=== PATIENT | female | born 1950 | race Caucasian/White ===

== ENCOUNTER 2016-12-24 00:05 | Inpatient (IN) | payer MEDICARE, MEDICAID ==
[2016-12-24] MEDS ORDERED: Ondansetron HCl/PF 4 MG/2 ML Vial IVP PRN (03:42)
[2016-12-24] MEDS ORDERED: Acetaminophen 650 MG Suppository PR PRN (03:42)
[2016-12-24] MEDS ORDERED: HumaLOG 300 UNITS/3 ML VIAL SC PRN (04:17)
[2016-12-24] MEDS ORDERED: Dextrose 50% Abboject 50 ML SYRINGE SLOW IVP PRN (04:17)
[2016-12-24] MEDS ORDERED: Dextrose 5% in Water 1,000 ML IV PRN (04:17)
[2016-12-24] MEDS ORDERED: Sodium Chloride 0.9% 1,000 ML IV SCH (04:30)
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
[2016-12-24 05:50] VITALS: BMI 24.3
[2016-12-24 06:03] LABS: Sodium 139 mmol/L (135-148)
[2016-12-24 06:05] LABS: Vent NO
[2016-12-24 06:06] LABS: Mode 4LNC; Modified Allen's Test NOT DONE
[2016-12-24] MEDS: Piperacillin/Tazobactam 4.5 GM in Sodium Chloride 0.9% 100 ML IVPB SCH ×3 (06:50→21:26)
--- NOTE | 2016-12-24 08:54 | ULT ---
PRELIMINARY REPORT/[facility]/EMERGENCY AFTER HOURS PROCEDURE: EXAM: US Abdomen Limited, Right Upper Quadrant CLINICAL HISTORY: 66 years old, female; Pain; Other: Abd pain, elevated lfts, sepsis TECHNIQUE: Real-time ultrasound of the right upper quadrant with image documentation. COMPARISON: No relevant prior studies available. FINDINGS: Liver: No mass. No intrahepatic bile duct dilation. Gallbladder: Sludge. No gallstones. Mild gallbladder wall thickening. Trace pericholecystic fluid. P ositive [place] sign. Common bile duct: Unremarkable. Pancreas: Unremarkable. Right kidney: No stones. No solid mass. No hydronephrosis. Trace perinephric fluid. IMPRESSION: Gallbladder sludge with mild wall thickening, trace pericholecystic fluid and positive Farah's sign ; recommend clinical correlation for cholecystitis. Thank you for allowing us to participate in the care of your patient. Dictated and Authenticated by: Stan Castro MD 12/24/2016 2:34 AM Central Time ([place] \T\ [place])\H\ \N\ FINAL REPORT EMERGENCY AFTER HOURS RIGHT UPPER QUADRANT ULTRASOUND: Date: 12/24/16 HISTORY: Abdominal pain, elevated liver function tests, elevated lactate. IMPRESSION: 1. Gallbladder sludge without gallbladder calculus. Gallbladder wall is thickened, measuring 0.48 c m in thickness. There is a trace amount of pericholecystic fluid. Educational Audiologist does note positiv e sonographic Farah's sign. Findings could be related to cholecystitis in the correct clinical scen ario. 2. Common duct is normal in caliber measuring 0.5 cm. 3. Mild fatty infiltration of the liver. 4. Trace amount of perinephric fluid on the right. Findings are in agreement with the preliminary report by Christina. POS: [facility]
[2016-12-24] MEDS ORDERED: Budesonide 0.5 MG/2 ML NEB NEB PRN (09:31)
--- NOTE | 2016-12-24 09:36 | PDOC.PN ---
- Subjective Encounter Start Date: 12/24/16 Encounter Start Time: 09:25 Subjective: f/u after admit for sepsis, hypoglycemia, acute cholecystetitis and A-fib -: with RVR on Cardizem. Tx with Zosyn, IVF's. c/o mild mid-abd pain with -: intermittent nausea. - Objective MAR Reviewed: Yes Vital Signs & Weight: Vital Signs (12 hours) Temp Pulse Resp BP Pulse Ox 12/24/16 08:00 96.6 F L 91 24 H 117/64 93 L 12/24/16 06:05 98.2 F 88 20 117/75 95 12/24/16 06:00 98.2 F 88 20 95 12/24/16 05:05 97.8 F 95 20 115/64 91 L Weight Weight 132 lb 11.2 oz I&O: 12/23/16 12/24/16 12/25/16 06:59 06:59 06:59 Intake Total 75 Output Total 400 Balance -325 Additional Labs: Accuchecks 12/24/16 12/24/16 09:03 06:07 POC Glucose 139 H 152 H Laboratory Tests 12/24/16 12/24/16 12/24/16 05:54 06:07 09:03 Bicarbonate Actual 17.2 L ABG pH 7.35 ABG pCO2 31.8 L ABG pO2 152.4 H ABG O2 Sat Calc/Juan 99.1 Inspired O2 36 POC Glucose 152 H 139 H Radiology Reviewed by me: Yes (Abd sono - GB wall thickening, sludge, no CBD dilation) EKG Reviewed by me: Yes (Tele - Sinus tachycardia with PAC's) Phys Exam - Physical Examination Constitutional: NAD awake, responsive HEENT: PERRLA, oral pharynx no lesions Neck: no JVD, supple Respiratory: no wheezing tachycardic Cardiovascular: RRR +TTP in mid-epigastric region Gastrointestinal: soft, no distention, positive bowel sounds Musculoskeletal: no edema, pulses present Neurological: normal sensation, moves all 4 limbs Psychiatric: A&O x 3 Skin: normal turgor, cap refill <2 seconds Deviation from normal: Freeman with benitez urine Dx/Plan (1) Sepsis Code(s): A41.9 - SEPSIS, UNSPECIFIED ORGANISM Status: Acute Qualifiers: Sepsis type: sepsis due to unspecified organism Qualified Code(s): A41.9 - Sepsis, unspecified organism Comment: Suspected due to #2, continue Zosyn 4.5gm IV q6h, blood and Ucx pending , increase IVF's 100ml/h, repeat lactic acid (2) Acute cholecystitis without calculus Code(s): K81.0 - ACUTE CHOLECYSTITIS Status: Acute Comment: Suspected by clinical findings and kishan gale, consult Gen Surgery for evaluation, contine Zosyn and supportive measures (3) Atrial fibrillation with RVR Code(s): I48.91 - UNSPECIFIED ATRIAL FIBRILLATION Status: Acute Comment: PAF now in sinus tachycardia with PAC's, continue rate control measures, tele (4) Hypoglycemia Code(s): E16.2 - HYPOGLYCEMIA, UNSPECIFIED Status: Acute Comment: Resolved, likely due to #1, serial accuchecks, avoid hypoglycemic agents (5) DM type 2 (diabetes mellitus, type 2) Status: Chronic Comment: Hold hypoglycemic agents due to initial hypoglycemia , resume home regimen once clinically stabilizing (6) Smoker Code(s): F17.200 - NICOTINE DEPENDENCE, UNSPECIFIED, UNCOMPLICATED Status: Chronic Comment: Tobacco cessation, consider Nicotine patch - Plan continue antibiotics, public health social worker, respiratory therapy, DVT proph w/SCDs Continue Zosyn -: Gen Surgery consult regarding acute cholecystitis -: Increase IVF's 100ml/h -: Titrate off Cardizem gtt -: Resume Duonebs, Singulair, O2 supplementation * Labs: CMP, CBC, Lactic acid * AM labs: BMP, CBC
[2016-12-24 10:17] LABS: Lactic Acid - Sepsis 3.1 mmol/L (0.5-2.2)
[2016-12-24 10:21] LABS: ALT (SGPT) 1788 U/L (8-55); Alkaline Phosphatase 83 U/L (40-150); Anion Gap 15 mmol/L (10-20); BUN (Urea Nitrogen) 39 mg/dL (9.8-20.1); Calc. Creatinine Clearance 53 mL/min (70-130); Calcium 6.9 mg/dL (7.8-10.44); Carbon Dioxide 16 mmol/L (23-31); Chloride 109 mmol/L (98-107); Estimated GFR-MDRD 55; Globulin 2.6 g/dL (2.4-3.5); Protein, Total 5.5 g/dL (6.0-8.3)
[2016-12-24 10:30] LABS: AST (SGOT) Greater than 3500 U/L (5-34)
[2016-12-24] MEDS ORDERED: Metoprolol Tartrate 5 MG/5 ML VIAL IVP SCH (10:30)
[2016-12-24] MEDS: Sodium Chloride 0.9% 1,000 ML IV SCH ×2 (10:41→21:25)
[2016-12-24 11:15] LABS: Band 17 % (5-11); Burr Cells MARKED = >16 cells (100X) (0-1/hpf); Hematocrit 40.2 % (36.0-47.0); Mean Platelet Volume 10.7 fL (7.4-10.4); Neutrophil 66 % (42-75); Nucleated RBC 3 % (0); Polychromasia MODERATE = 3-4 cells (100X) (0-2/hpf); Reactive Lymphocytes 1 % (0-10); Red Blood Cell (RBC) Count 4.47 mill/uL (4.20-5.40); Schistocytes SLIGHT = 2-5 cells (100X) (0-1/hpf); White Blood Cell (WBC) Count 16.1 thou/uL (4.8-10.8)
[2016-12-24 11:20] LABS: Acetaminophen Less than 6.0 mcg/mL (10.0-30.0)
[2016-12-24 11:53] LABS: PTT 32.9 SEC (22.9-36.1); Prothrombin Time 42.2 SEC (12.0-14.7)
--- NOTE | 2016-12-24 11:59 | CON ---
DATE OF CONSULTATION: 12/24/2016 REASON FOR CONSULTATION: Atrial fibrillation with rapid ventricular response. HISTORY OF PRESENT ILLNESS: Ms. Eubanks is a very pleasant 66-year-old white gentleman who comes to the hospital for abdominal pain. She states for the last 3 days she has been vomiting everything she eats. She has not really eaten anything because of the continued nausea. She has got generalized abdominal pain, worse on the right upper quadrant and left lower quadrant. She came into the [facility] in [place] for this and was transferred over here for further care. She was found to be in atrial fibrillation and RVR, so Cardiology is being consulted for this. She has a significant history of peripheral vascular disease. Her atrial fibrillation is subsequently rate controlled between 90 and 110 right now. She denies any chest pain, tightness, pressure. She only feels palpitations, but her biggest complaint is abdominal pain. PAST MEDICAL HISTORY: 1. Peripheral vascular disease with an occluded left common iliac artery and abdominal aortic aneurysm, not in the range of needing surgery. 2. Hypertension. 3. COPD. 4. Gastroesophageal reflux disease. 5. CTA in the past. 6. in 10/2016. 7. Hiatal hernia. 8. Diverticulosis. 9. Coronary artery with severe left circumflex disease that was not amenable to endovascular intervention. 10. History of diastolic dysfunction and systolic dysfunction with EF at 45%. 11. Chronic kidney disease stage 3. 12. Type 2 diabetes. PAST SURGICAL HISTORY: 1. Endoscopy and colonoscopy. 2. Right hip replacement. 3. Total hysterectomy. 4. Hernia repair. 5. Cardiac catheterization as above. SOCIAL HISTORY: Denies alcohol or drugs. She continues to smoke about a pack and a half a day. FAMILY HISTORY: Brother with a myocardial infarction. Son, [id number] and grandchild all have hepatitis C. OUTPATIENT MEDICATIONS: 1. Senna. 2. Protonix. 3. Fish oil. 4. Multivitamin. 5. Singulair. 6. Lisinopril 10 mg a day. 7. DuoNeb. 8. Neurontin. 9. Ferrous sulfate. 10. Plavix 75 mg daily. 11. Coreg 3.125 mg b.i.d. 12. Pulmicort. 13. Atorvastatin 40 mg at bedtime. ALLERGIES: 1. AMIODARONE. 2. ASPIRIN. 3. IBUPROFEN. 4. METHADONE. 5. DARVON. REVIEW OF SYSTEMS: A 12 point review of systems was done, it is all negative unless stated in the history of present illness. PHYSICAL EXAMINATION: VITAL SIGNS: Temperature maximum 98.2, pulse between 88 and 105, respiratory rate 24, satting 93% on 2.5 liters, blood pressure 117/64. GENERAL: Awake, alert, oriented x3 in mild distress. HEENT: Normocephalic, atraumatic. NECK: Supple. LUNGS: Reduced breath sounds bilaterally. CARDIOVASCULAR: S1, S2, no S3 or S4. Irregularly irregular. Heart rate in the upper 90s. ABDOMEN: Tender to palpation. No rebound or guarding, but it is exquisitely tender throughout. EXTREMITIES: No edema. SKIN: Warm and dry. LABORATORY WORK: Laboratory work was reviewed from [facility] and it showed a pH of 7.2, pCO2 29, HCO2 of 12, pO2 was 112. Glucose was 13, BUN 48, creatinine 1.6, GFR 50, calcium 8.9, albumin 4, total bilirubin of 4.3, alkaline phosphatase 93, total protein 7.5, ALT of 468, AST of 589, globulin of 3.5. Lipase of 21. CK of 187. Ammonia 34. Lactate of 10.3, troponin of 0.08. No alcohol, no acetaminophen or salicylates, myoglobin was 690. White count 15, hemoglobin 13, hematocrit 45 granulocytes 84%. UA showed trace ketones, moderate blood, trace protein, 15-30 hyaline casts. Urine drug screen was negative. INR was 4.5. PT was 48.5. BNP was 475, CK-MB was 17. EKG reviewed from the outside facility, atrial fibrillation with RVR. Currently, telemetry shows atrial fibrillation, leniently rate controlled. CT scan of the abdomen without contrast shows hyperdensity within the gallbladder, may reflect gallbladder sludge, there is nodularity within the left lower lobe that can be seen with bronchiolitis or infection with inflammatory etiology. Bibasilar emphysema, a large hiatal hernia, bilateral adrenal nodules, hyperdensities in the lateral margin of the left kidney, nonspecific. Right nephrolithiasis, thoracic and infrarenal abdominal aortic aneurysm, colonic diverticulosis and an inguinal hernia containing a portion of the right bladder dome. ASSESSMENT AND PLAN: 1. Atrial fibrillation, rapid ventricular response: Rate controlled for now. Her INR is so high that she is probably naturally anticoagulated right now. It would be contraindicated to give any Plavix or any anticoagulation at this time. We will hold off on any cardioversion at this time, probably she needs her heart rate so we will do some permissive tachycardia at this time. We will start low dose beta margarette in the form of metoprolol 5 mg IV q.6 h. 2. Non-ST elevation myocardial infarction: Demand ischemia, most likely. 3. Abnormal liver function tests: Some sludge in gallbladder. Will probably need GI evaluation. General surgeon already being called. My biggest concern is ischemic bowel or an embolic phenomenon at this time given her history of afib new onset and abdominal aortic aneurysm and vasculopath. Thank you for letting us participate in the care of your patient. We will follow. WAQAR
[2016-12-24] MEDS ORDERED: Sodium Bicarb 50 MEQ/50 ML Abboject 8.4% SYRINGE IVP SCH ×2 (12:00→14:00)
[2016-12-24 12:05] LABS: ALT (SGPT) 1764 U/L (8-55); AST (SGOT) 3453 U/L (5-34); Alkaline Phosphatase 88 U/L (40-150); Bilirubin, Direct 2.2 mg/dL (0.1-0.3); Bilirubin, Total 3.2 mg/dL (0.2-1.2); Protein, Total 5.5 g/dL (6.0-8.3)
--- NOTE | 2016-12-24 13:02 | ULT ---
HEPATIC SONOGRAM WITH DUPLEX EVALUATION. HISTORY: Abnormal liver function tests. FINDINGS: No gallbladder abnormalities are apparent. The liver is unremarkable. The common duct was not eval uated. Good color and spectral Doppler flow are present within the hepatic and splenic arteries. Portal ve nous flow is towards the liver. Hepatic venous flow is towards the IVC. IMPRESSION: No sonographic evidence of portal venous hypertension. POS: [facility]
--- NOTE | 2016-12-24 13:54 | CT ---
EXAM: CT ANGIOGRAM OF THE ABDOMEN AND CT ANGIOGRAM OF THE PELVIS: HISTORY: Evaluate for ischemic bowel. Evaluate for colitis and hepatitis. COMPARISON: None. CORRELATION: Abdomen and pelvic CT without contrast 06/10/16. TECHNIQUE: CT angiogram of the abdomen and pelvis performed in the axial plane. Sagittal and coronal 3-dimensi onal reformatted images are submitted for interpretation. FINDINGS: Small bilateral pleural effusions with adjacent consolidation due to atelectasis or pneumonia. Rede monstration of a moderate hiatal hernia. Limited evaluation of the solid organs due to arterial phase enhancement. No obvious abnormal enhan cing masses or vascular lesions throughout the solid organs. There is reflux of contrast into the intrahepatic veins due to right heart failure. There is atrophy of the left kidney with marked mid pole and upper pole cortical thinning. There ar e hypodensities in the left renal cortex which are statistically favored to be cysts. No obstructiv e uropathy. Symmetric attenuation of the psoas muscles. Minimal mesenteric fat stranding. There is fluid in both paracolic butters, right greater than left . No mass, lymphadenopathy, or free air. Limited evaluation of the alimentary canal due to the lack of oral contrast. Hiatal hernia is demon strated. Multiple normal-caliber small bowel loops. Ileocecal junction is normal. There is mild m ucosal prominence throughout the majority of the colon which is felt to be due to inadequate distent ion. Definite pericolonic fat stranding is not appreciated. There is diverticulosis of the sigmoid colon, without evidence of diverticulitis. PELVIC CT: The urinary bladder is decompressed by Freeman catheterization. Surgically absent uterus. No pelvic mass, lymphadenopathy, or free air. There is free fluid in the pelvis with an attenuation coefficie nt of 11 Hounsfield units suggesting simple fluid. There are no osteoblastic or osteolytic lesions. CT ANGIOGRAM: There is aneurysmal dilatation of the descending thoracic aorta with eccentric thrombus. There is a ssociated moderate narrowing. The descending thoracic aorta measures 3.5 x 3.5 cm. There is extens tiana atherosclerotic disease with high-grade stenosis at the origin of the celiac artery. There is a therosclerotic disease with moderate stenosis at the origin of the superior mesenteric artery. The proximal superior mesenteric artery has appropriate enhancement. The left and right renal arteries do have atherosclerosis. There is moderate short-segment stenosis at the origin of the right renal artery. Atherosclerosis with mild narrowing at the origin of the left vertebral artery is noted. S olitary left and right vertebral arteries are identified. There is aneurysmal dilatation of the int rarenal abdominal aorta, measuring 3.5 cm anterior posterior x 3.5 cm craniocaudal. There is marked eccentric thrombus with resultant moderate/severe narrowing of the lumen. The inferior mesenteric artery is unremarkable. The distal abdominal aorta has an overall normal caliber. There is extensi ve atherosclerosis with mild/moderate stenosis. Aortic bifurcation demonstrates mild narrowing due to eccentric thrombus. The proximal right common iliac artery has appropriate enhancement and lumin al diameter. At the bifurcation of the right common iliac artery, there appears to be focal aneurys mal dilatation measuring 1.3 cm. There is long-segment thrombosis and occlusion of the entire left common iliac artery. The left internal and external iliac arteries do not have any significant cont rast enhancement. The right internal and external iliac arteries demonstrate atherosclerotic diseas e. Contrast enhancement is still present. IMPRESSION: 1. Nonspecific thickening of the colonic mucosa. Distribution is not typical with an ischemic proc ess. However, given the degree of atherosclerotic disease, a component of ischemic change can not b e excluded. Additionally, infectious or inflammatory colitis should be considered. There is evidenc e of diverticulosis, without evidence of diverticulitis. Evaluation of the colon is limited on this examination due to lack of oral contrast/rectal contrast administration. 2. Atherosclerosis of the aorta as detailed above. There is significant narrowing and aneurysmal d ilatation, as detailed above. POS: [facility]
[2016-12-24 14:15] LABS: Iron 18 ug/dL (50-170)
--- NOTE | 2016-12-24 14:16 | CON ---
DATE OF CONSULTATION: 12/24/2016 GI INPATIENT CONSULTATION NOTE REQUESTING PHYSICIAN: Dr. Diaz. REASON FOR CONSULTATION: Elevated LFTs. HISTORY OF PRESENT ILLNESS: Ashwini Eubanks is a 66-year-old woman whom I met earlier this year in the outpatient setting. She has a significant history of vascular disease with history of CVA x5; coronary artery disease with prior stent, on Plavix; congestive heart failure; and COPD. I recently saw her for complaints of dysphagia and change in bowel habits towards constipation. We performed EGD and colonoscopy just over a month ago on 11/20/2016 that showed a Schatzki ring which I dilated to 19 mm with good disruption, moderate hiatal hernia, left-sided diverticulosis and a tortuous colon with internal hemorrhoids , but was otherwise unremarkable. She was admitted to the hospital overnight being transferred from [place]. She reports that she has been having abdominal pain and nausea as well as few episodes of vomiting for the past 4 days. She attributes this to being jumped on by a large cat. In [place], labs are significant for LFTs elevated into 600s with normal alkaline phosphatase, total bilirubin up to 4.3 and INR up to 4.5. She was initially hypotensive and found to be in atrial fibrillation with rapid ventricular rate. On the Cardizem drip, she became hypotensive and thus she was transferred here. Upon arrival here, abdominal discomfort and nausea persists. She has had CT and ultrasound imaging which will be detailed below, essentially showing gallbladder sludge and mild gallbladder wall thickening, also suggestion of gastric rather in the right atrium and right ventricle. Her lactic acid was initially elevated at 10.3. She has been seen by Cardiology and surgical teams already. She just come back from hepatic arterial ultrasound as well as CT angiogram, but those reports and images are not yet back. She has been hemodynamically stable here. She denies any recent acetaminophen use or any other [id number] medication use. She denies any alcohol abuse, though she used to drink heavily in the past. LFTs are now dramatically shot up with AST 3500, ALT 1788 and viral hepatitis serologies are negative. REVIEW OF SYSTEMS: Full review of systems including constitutional, head, eyes , ears, nose, throat, GI, , cardiovascular, respiratory, musculoskeletal, and neurologic systems is negative except as noted in the HPI. PAST MEDICAL HISTORY: Congestive heart failure, coronary artery disease with stent, COPD, chronic renal disease, CVA x5, hypertension, hyperlipidemia, hiatal hernia, Schatzki ring status post dilation in 10/2016, colonic diverticulosis, peripheral vascular disease with occluded left common iliac artery and abdominal aortic aneurysm, right hip replacement, total hysterectomy , hernia repair, and cardiac catheterization. FAMILY HISTORY: Multiple family members have hepatitis C. Brother had a myocardial infarction. SOCIAL HISTORY: No current alcohol or drug use. She smokes about a pack and half of cigarettes per day. OUTPATIENT MEDICATIONS: Senna, Protonix, fish oil, multivitamin, Singulair, lisinopril, DuoNeb, Neurontin, ferrous sulfate, Plavix 75 mg daily, Coreg, Pulmicort, and atorvastatin. INPATIENT MEDICATION: Zosyn IV. ALLERGIES: AMIODARONE, ASPIRIN, IBUPROFEN, METHADONE, and DARVON. PHYSICAL EXAMINATION: VITAL SIGNS: Temperature 96.6, pulse 91, blood pressure 117/64, 93% oxygen saturation on 2.5 liters nasal cannula. GENERAL: Chronically ill appearing 66-year-old woman lying in bed in mild to moderate discomfort from abdominal pain and nausea. MENTAL: Alert and oriented. SKIN: Mild jaundice, no rash visible or palpable. EYES: No scleral icterus. ENT: Mucous membranes moist. LYMPH: No submandibular or supraclavicular lymphadenopathy. THYROID: Nontender to palpation. HEART: Regular rate and rhythm. LUNGS: Bibasilar crackles. No wheezing, no respiratory distress. ABDOMEN: Flat, bowel sounds are present, soft, tender to palpation throughout the upper abdomen. No guarding or rebound tenderness. EXTREMITIES: No peripheral edema. NEUROLOGIC: Cranial nerves II-XII intact bilaterally. LABORATORY STUDIES: WBC 16.1, hemoglobin 11.1, platelets 68, BUN 39, creatinine 1.01. Sodium 136, potassium 3.9, total bilirubin 3.2, AST 3453, ALT 1764, albumin 3.0. Lactic acid initially 10.5, now down to 3.1. INR is 4.1. Acetaminophen level negative. Plasma alcohol level negative. Viral hepatitis serology is negative for hepatitis A, B and C. IMAGING STUDIES: Abdominal ultrasound shows gallbladder sludge, mild gallbladder wall thickening, and trace pericholecystic fluid with a positive Farah sign, but normal appearing liver, common bile duct and pancreas. Yesterday, noncontrast CT from [place] showed left lower lobe nodularity, gallbladder sludge free fluid in the pelvis. Right inguinal hernia with portions of the bladder dome inside it and what appeared to be gas in the right atrium and ventricle. ASSESSMENT AND PLAN: 1. Elevated liver function tests. 2. Sepsis. 3. Biliary sludge. 4. Peripheral vascular disease. The patient's quite acute elevation in transaminases with essentially normal alkaline phosphatase all suggest acute hepatocellular injury and I would most suspect shock liver or other ischemic insult to the liver. I agree that the degree of her elevation here is not consistent with just cholecystitis, though she may indeed have cholecystitis driving her sepsis. Also note the negative acetaminophen and alcohol levels, as well as a normal common bile duct. Certainly no indication for ERCP. Viral hepatitis serologies are negative. I will obtain autoimmune markers, we will need to trend the LFTs and INR closely. Follow up surgical recommendations. I understand there is some concern for possible ischemic bowel or ischemic insult to the liver, and I share that concern. Follow up results of the CT angiogram and hepatic Doppler ultrasound studies which are in process now, as well as planned echocardiogram. Agree with antibiotics in the meantime. Continue supportive care. GI will follow along. Please call with questions or concerns. WAQAR
--- NOTE | 2016-12-24 14:24 | CON ---
DATE OF CONSULTATION: 12/24/2016 REQUESTING PHYSICIAN: Dr. Mynor Villanueva HISTORY OF PRESENT ILLNESS: This is a 66-year-old woman with whom I have been asked to see today with insidious onset right upper quadrant abdominal pain. Abdominal ultrasound earlier was suspicious for acute cholecystitis for which the patient was referred to me. At the time of my evaluation, the patient is awake and alert. She reports generalized abdominal pain at this time. The patient reports worsening abdominal pain over the course of 3-4 days. She admits to intractable nausea over the last 3 days. She has been anorexic due to recurrent postprandial emesis over the last 3 days as well. She denies any hematochezia or melena. She denies any unexplained weight loss. The patient was reportedly with a new onset acute atrial fibrillation with rapid ventricular response [facility] [place] prior to transfer to [place], [place]. Currently, she is in normal sinus rhythm. PAST MEDICAL HISTORY: Significant for stage 3 kidney disease, COPD, severe peripheral vascular disease, essential hypertension, diverticulosis coli, gastroesophageal reflux disease, type 2 diabetes mellitus, and chronic cardiac diastolic and systolic dysfunction with most recent ejection fraction noted at 45%. SURGICAL HISTORY: Significant for a total abdominal hysterectomy, total right hip arthroplasty, upper and lower endoscopies, previous hernia repair as well as a cardiac catheterization. SOCIAL HISTORY: The patient is greater than [id number] cigarette smoker who actively indulges. She denies any ethanol or illicit drug abuse. FAMILY HISTORY: Noncontributory for this patient's age. PREHOSPITAL MEDICATION: Includes atorvastatin 40 mg p.o. daily, carvedilol 3.125 mg p.o. b.i.d., Plavix 75 mg p.o. daily, ferrous sulfate 325 mg p.o. daily , lisinopril 10 mg p.o. q.a.m., omega 3 fatty acid 1 p.o. daily, Protonix 40 mg p.o. daily, gabapentin 400 mg p.o. t.i.d., DuoNebs q.i.d. as well as Singulair 10 mg p.o. daily. ALLERGIES: AMIODARONE, ASPIRIN, IBUPROFEN METHADONE and PROPOXYPHENE. REVIEW OF SYSTEMS: Ten point review of systems essentially unremarkable except for as stated in past medical history and chief complaint. PHYSICAL EXAMINATION: GENERAL: This reveals a 66-year-old normally developed woman who is otherwise coherent and interactive and appears stated age. The patient is alert and oriented x3, appears to be in moderate acute distress secondary to abdominal pain. VITAL SIGNS: Today includes blood pressure 95/67, pulse is 92, respirations 20 , temperature is 97.3 degrees Fahrenheit. Oxygen saturation is 93% on 2 liters by nasal cannula oxygen. HEENT: Reveals normocephalic and atraumatic. Pupils are equal, round, and reactive to light and accommodation. Extraocular muscles are intact bilaterally. The patient has no jugular venous distention noted. Oral mucosa is pink though dry. No intraoral lesions are noted. HEART: Reveals regular rate and rhythm, no murmurs or gallops auscultated. LUNGS: Reveals scattered rhonchi. Breathing is otherwise regular and unlabored. ABDOMEN: Soft and nondistended. The patient has diffuse abdominal tenderness to palpation with no significant gross rebound tenderness present. Liver and spleen are nonpalpable below costal margins. EXTREMITIES: Reveals poorly palpable pedal pulses, though both feet are warm to touch. Radial pulses are readily palpable in both upper extremities. NEUROLOGIC: Reveals no focal deficits present. PERTINENT LABORATORY FINDINGS: Today include CBC with 16,100 white blood cells , hemoglobin is 11.7, hematocrit is 40.2, platelet count is 68,000. Metabolic profile: Sodium 136, potassium is 3.9, chloride is 109, bicarbonate 16, BUN is 39, creatinine is 1.01, glucose 144, total bilirubin is elevated at 3.2 with a direct bilirubin of 2.2, AST is 3453, AST 1764, alkaline phosphatase is normal at 88. PTT is normal at 32.9 seconds; however. PT and INR are elevated at 42.2 seconds and 4.1 respectively. I personally evaluated the abdominal ultrasound though with findings of mild gallbladder wall thickening and some biliary sludge, I was not impressed by any radiographic findings to suggest acute cholecystitis as the etiology of this patient's abdominal pain. I followed this up with a CT angiography of the abdomen and pelvis which is remarkable for extensive thrombosis of the abdominal and descending thoracic aorta. Thrombosis also extends into the celiac. There is a diffuse colonic wall thickening. IMPRESSION: 1. Acute thoracoabdominal Aortic thromboembolism. 2. Acute ischemic hepatitis secondary to #1. 3. Likely acute ischemic colitis secondary to #1. 4. Acute metabolic acidosis secondary to #1. RECOMMENDATIONS: 1. Continue with broad spectrum antibiotics as the patient is at high risk for bacterial translocation from ischemic colitis. 2. The patient requires evaluation by Cardiovascular Service regarding the descending thoracic and abdominal aortic thromboembolism. 3. We are not able to evaluate the rest of the thoracic aorta which may also be involved in this process. Given this patient's recent history of a new onset acute atrial fibrillation with rapid ventricular response, it will be advisable to exclude intracardiac thrombus as an etiology of possible embolization of the mesenteric vasculature. Above findings and recommendation have been discussed with the primary service, Dr. Villanueva. I have also advised the patient of the above findings and recommendations. She indicates understanding of the information given. Thank you again, Dr. Villanueva, for allowing me the opportunity to participate in the care of this patient. WAQAR
[2016-12-24 14:45] LABS: Mode NC; Vent NO
[2016-12-24] MEDS ORDERED: Gabapentin 400 MG CAP PO SCH (15:00)
--- NOTE | 2016-12-24 15:15 | PDOC.EVN ---
Event Note - Event Note Event Note: CTA of chest/abd/pelvis showing extensive thrombus of the descending aorta and involvement into the L common iliac artery. Current recommendations per surgery and cardiology service are to transfer pt to higher level of care for definitive management of thrombus and potential aortic aneurysms as well as the associated ischemic colitis and hepatitis. Transfer center notified of need for transfer and awaiting response.
[2016-12-24] MEDS ORDERED: ISOVUE-370 76%-LOCM 1 ML ONE (17:16)
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
[2016-12-24] MEDS ORDERED: FLU VACC TS2017-18 (>65YR) 0.5 ML SYRINGE IM ONE (21:00)
--- NOTE | 2016-12-24 21:22 | DIS ---
DATE OF ADMISSION: 12/24/2016 DATE OF TRANSFER CARE SUMMARY: 12/24/2016 CURRENT DIAGNOSES: 1. Acute thoracoabdominal thromboembolism. 2. Acute ischemic hepatitis secondary to acute thoracoabdominal thromboembolism. 3. Acute ischemic colitis secondary to acute thoracoabdominal thromboembolism. 4. Supratherapeutic INR secondary to acute ischemic hepatitis. 5. Leukocytosis with bandemia. 6. Lactic acidosis. 7. Metabolic acidosis. 8. Aneurysm of the descending thoracic aorta with associated eccentric thrombus 3.5 x 3.5 cm. 9. 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 10. 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 11. Thrombosis and occlusion of the entire left common iliac artery. 12. Ischemic cardiomyopathy with an ejection fraction of 20%-25%. 13. Moderate mitral valve regurgitation. 14. Severe tricuspid valve regurgitation. 15. Atrial fibrillation with rapid ventricular response. 16. Hypoglycemia, resolved. 17. Emphysema. 18. Coronary artery disease. 19. Diabetes mellitus type 2. CONSULTATIONS: 1. Dr. Kinsey with Trauma and General Surgery Service. 2. Dr. Barksdale with GI Service. 3. Dr. Frederick with Pulmonology Service. 4. Dr. Diaz with Cardiology Service. PERTINENT LABORATORY AND X-RAY FINDINGS: Carbon dioxide level of 16, BUN 39, creatinine 1.01, with estimated GFR of 55. Lactic acid level ranged between 3.1-3.5. Serum iron level 18, TIBC 320, ferr itin 183, total bilirubin ranged between 3.0-3.2, AST ranged between 3453 to greater than 3500, ALT ranged between 8471-3318, albumin 3.0. CBC showed a white blood cell count of 16.1, hemoglobin 11.7 , hematocrit 40.2, MCV 90, platelet count 68,000, neutrophils 66%, 17% bands. PT 42.2, INR of 4.1, PTT 32.9. Plasma alcohol level less than 10, 12/24/2016. Hepatitis A, B, and C panel negative 04/2016. 1. Abdominal ultrasound dated 12/24/2016 showed gallbladder sludge and mild wall thickening with tr keya pericholecystic fluid and positive Farah's sign. Common bile duct 0.5 cm. Mild fatty infiltra tion of the liver. 2. Hepatic Doppler ultrasound dated 12/24/2016 showed no sonographic evidence of portal venous hype rtension. CT angiogram of the abdomen and pelvis dated 12/24/2016 showed the question of ischemic c olonic mucosal thickening. 3. Aneurysm of the descending thoracic aorta and the intrarenal aorta 3.5 x 3.5 cm with associated extensive thrombosis. Focal aneurysmal dilation of 1.3 cm at the bifurcation of the right common il iac artery. Extensive thrombosis noted in this region as well as a long segment of thrombosis with occlusion of the entire left common iliac artery. A 2D transthoracic echocardiogram showed depresse d ejection fraction of 20%-25%. Please see dictated report for full details. HOSPITAL COURSE: The patient was initially admitted after presenting to the emergency room with abd ominal pain and shortness of breath. The patient underwent extensive evaluation including multiple abdominal imaging studies showing questionable acute cholecystitis as well as an initial glucose of 13 at presentation. The patient received aggressive intervention including an amp of D50 with overa ll stabilization in glucose values. The patient was also noted with lactic acidosis with an initial value of 10.3 down to 6 [address] [facility]. The patient receiv ed IV antibiotic therapy after concern for acute cholecystitis as well as intravenous fluids. The p atient was initially managed as sepsis/SIRS syndrome with antibiotic therapy, IV fluids, and serial lactate assessment. Initial evaluation by General Surgery Service was suspicious for a potential is chemic event and not acute cholecystitis. The patient underwent CT angiogram of the abdomen and pel vis showing evidence of extensive thrombosis of the thoracic and abdominal aorta as described previo usly. The patient was also noted with associated aneurysmal dilation of the affected areas as state d previously. The patient was noted with associated ischemic hepatitis with recommendations for gen eral supportive measures and transfer to a higher level of care for potential surgical intervention of the aorta and celiac arteries. The patient was also initially placed on Cardizem infusion when t he patient presented with atrial fibrillation and rapid ventricular response. The patient's overall rate had improved in the low 100s to upper 90s on Cardizem infusion as well as general supportive c are with intravenous fluid resuscitation. The patient's extensive and advanced cardiovascular disea se with associated thromboembolic phenomenon was deemed high risk for any surgical or an acute inter vention at this institution and the consensus among all consultants was transfer to a higher level o f care for definitive therapy and monitoring. The patient continued to receive supportive measures throughout the hospital stay with plans to transfer [facility]. DISCHARGE MEDICATIONS: 1. Pulmicort 0.5 mg nebulized daily p.r.n. 2. DuoNeb 3 mL nebulized q.i.d. p.r.n. 3. Normal saline at 100 mL per hour. 4. Zosyn 4.5 grams IV q. 8 hours. CONDITION AT THE TIME OF DICTATION: Guarded. ACTIVITY: Bed rest. DIET: N.P.O. except for sips of water. CODE STATUS: FULL. DISPOSITION: Anticipate discharge to [facility], 12/24/2016.
[2016-12-25 00:32] VITALS: TEMP 96.1
[2016-12-25 00:55] VITALS: BP 147/85
[2016-12-25 08:18] LABS: U1RNP/snRNP IGG Autoabs <0.2 AI (0.0-0.9)
[2016-12-25] MEDS ORDERED: Montelukast Sodium 10 mg Tablet PO SCH (09:00)
--- NOTE | 2016-12-27 06:54 | EKG ---
Test Reason : RYTHM CHANGE Blood Pressure : / mmHG Vent. Rate : 093 BPM Atrial Rate : 093 BPM P-R Int : 116 ms QRS Dur : 084 ms QT Int : 404 ms P-R-T Axes : 048 -19 265 degrees QTc Int : 502 ms Sinus rhythm with Premature atrial complexes T wave abnormality, consider lateral ischemia Abnormal ECG When compared with ECG of 31-AUG-2016 09:46, Premature atrial complexes are now Present Nonspecific T wave abnormality now evident in Inferior leads Confirmed by DIMPLE STONE ([id number]) on 12/27/2016 6:54:07 AM Referred By: MIGUEL ARRIAGA Confirmed By:DIMPLE STONE
--- NOTE | 2016-12-29 12:20 | EKG ---
Test Reason : Blood Pressure : / mmHG Vent. Rate : 117 BPM Atrial Rate : 159 BPM P-R Int : 000 ms QRS Dur : 084 ms QT Int : 348 ms P-R-T Axes : 000 -30 216 degrees QTc Int : 485 ms Atrial fibrillation with rapid ventricular response Left axis deviation Abnormal ECG No ST elevation/GA Confirmed by SHI CARDOSO ([id number]), loan expeditor MARIBEL LICEA ([id number] on 12/29/2016 12:20:18 PM Referred By: Confirmed By:SHI CARDOSO
== END 2016-12-24 22:00 | disposition short-term general hospital (02) | DRG 299 ==
LOC: ERS 00:05 → IMCU/EMU 03:59
PROVIDERS: ADMIT Internal Medicine; ATTEND Internal Medicine
DX: I82.290 Acute embolism and thrombosis of other thoracic veins (principal); K72.00 Acute and subacute hepatic failure without coma; K55.039 Acute (reversible) ischemia of large intestine, extent unspecified; I74.5 Embolism and thrombosis of iliac artery; N17.9 Acute kidney failure, unspecified; G93.41 Metabolic encephalopathy; E87.2 Acidosis; I13.0 Hypertensive heart and chronic kidney disease with heart failure and stage 1 through stage 4 chronic kidney disease, or unspecified chronic kidney disease; I50.22 Chronic systolic (congestive) heart failure; J44.9 Chronic obstructive pulmonary disease, unspecified; K21.9 Gastro-esophageal reflux disease without esophagitis; I71.2 Thoracic aortic aneurysm, without rupture; I25.5 Ischemic cardiomyopathy; I48.91 Unspecified atrial fibrillation; E11.649 Type 2 diabetes mellitus with hypoglycemia without coma; I25.10 Atherosclerotic heart disease of native coronary artery without angina pectoris; I72.3 Aneurysm of iliac artery; N18.3 Chronic kidney disease, stage 3 (moderate); I73.9 Peripheral vascular disease, unspecified; I08.1 Rheumatic disorders of both mitral and tricuspid valves; R79.1 Abnormal coagulation profile; F17.210 Nicotine dependence, cigarettes, uncomplicated; Z96.641 Presence of right artificial hip joint; Z88.5 Allergy status to narcotic agent; Z88.8 Allergy status to other drugs, medicaments and biological substances; Z82.49 Family history of ischemic heart disease and other diseases of the circulatory system; Z83.1 Family history of other infectious and parasitic diseases
CPT/HCPCS: 36415; 36416; 74174; 76705; 80053; 80074; 80307; 82728; 82805; 83516; 83540; 83550; 83605; 85007; 85027; 85610; 85730; 86038; 93005; 93010; 93306; 94640; 96361; 96374; J2543; J7050